=== PATIENT | female | born 1950 | race Caucasian/White ===

== ENCOUNTER 2019-06-01 14:07 | Emergency (ER) | payer MEDICARE ==
[~2019-06-01 14:07] MED LIST: Iopamidol 370 76% 125 ML VIAL FS ONE
[2019-06-01 15:07] LABS: Bilirubin Negative (Negative); Blood, Urine Trace (Negative); Glucose, Urine (Dipstick) 100 mg/dL (Negative); Leukocyte Trace (Negative); Nitrite Negative (Negative); Protein, Urine (Dipstick) Negative (Neg-Trace); Urobilinogen 0.2 mg/dL (Less than 2)
[2019-06-01 15:09] LABS: #Basophils 0.1 thou/uL (0.0-0.2); #Eosinphils 0.2 thou/uL (0.0-0.7); #Lymphocytes 2.2 thou/uL (1.20-3.40); #Monocytes 0.4 thou/uL (0.11-0.59); %Basophils 1.3 % (0.0-1.0); %Eosinophils 2.8 % (0.0-10.0); %Lymphocytes 37.4 % (21.0-51.0); %Monocytes 7.4 % (0.0-10.0); Hemoglobin 9.9 g/dL (12.0-16.0); Mean Corpuscular HGB CONC 30.5 g/dL (32.0-36.0); Mean Corpuscular Hemoglobin 26.9 pg (27.0-31.0); Mean Corpuscular Volume 88.3 fL (78.0-98.0); Platelet Count 217 thou/uL (130-400); RBC Distribution Width 13.2 % (11.5-14.5); Red Blood Cell (RBC) Count 3.69 mill/uL (4.20-5.40); White Blood Cell (WBC) Count 5.8 thou/uL (4.8-10.8)
[2019-06-01 15:12] LABS: Clarity Hazy (Clear)
[2019-06-01 15:13] LABS: Bacteria/HPF 3+ HPF (None Seen); RBC/HPF 0-3 HPF (0-3); Squamous Epithelial 0-3 HPF (0-3); WBC/HPF 0-3 HPF (0-3)
--- NOTE | 2019-06-01 15:21 | RAD ---
SINGLE VIEW OF THE CHEST: COMPARISON: 08/20/2009. HISTORY: Chest pain. FINDINGS: Single view of the chest shows a normal sized cardiomediastinal silhouette. There is no evidence of c onsolidation, mass, or pleural effusion. The bones are unremarkable. IMPRESSION: No evidence of acute cardiopulmonary disease. POS: EAA
[2019-06-01 15:25] LABS: ALT (SGPT) 13 U/L (8-55); AST (SGOT) 17 U/L (5-34); Albumin 3.8 g/dL (3.4-4.8); Alkaline Phosphatase 122 U/L (40-110); Anion Gap 14 mmol/L (10-20); BUN (Urea Nitrogen) 16 mg/dL (9.8-20.1); Bilirubin, Total 0.3 mg/dL (0.2-1.2); Calc. Creatinine Clearance 0 mL/min (70-130); Calcium 8.7 mg/dL (7.8-10.44); Carbon Dioxide 24 mmol/L (23-31); Chloride 109 mmol/L (98-107); Estimated GFR-MDRD 80; Globulin 3.2 g/dL (2.4-3.5); Glucose 134 mg/dL (83-110); Magnesium 1.8 mg/dL (1.6-2.6); Potassium 3.7 mmol/L (3.5-5.1); Sodium 143 mmol/L (136-145)
[2019-06-01] MEDS ORDERED: Aspirin Chewable 81 MG TAB ONE (16:41)
--- NOTE | 2019-06-01 18:56 | CT ---
CT ANGIOGRAM THORAX WITH CONTRAST: (CTA pulmonary angiogram) DATE: 06/01/2019 HISTORY: 69-year-old female with history of recent travel presents with dyspnea and chest pain. TECHNIQUE: IV injection of iodinated contrast. Scan acquisition timing attempted to coincide with iodinated contrast bolus reaching maximal density in pulmonary arteries. 3-D MIP reconstructions. FINDINGS: No thoracic aortic aneurysm or dissection. No thrombus in the pulmonic trunk, left and right main pulmonary arteries, or their first order branc hes. There is severe breathing motion artifact severely degrading the images of the lower lobes, such that the branches of the pulmonary arteries distal to the first order branches, cannot be evaluated. No focal consolidation is visualized. No pleural effusion or pneumothorax. No mediastinal or hilar lymph adenopathy. Trachea and bilateral mainstem bronchi are patent and clear. IMPRESSION: 1. Suboptimal study. The patient did not suspend respirations during the scan. 2. No central pulmonary thromboembolism. Cannot evaluate for pulmonary thromboembolism beyond the fir st order branches of the bilateral main pulmonary arteries. 3. No gross consolidation.
== END 2019-06-01 20:08 | disposition short-term general hospital (02) ==
LOC: EDBD 14:07 → MADERS 14:07
DX: I45.10 Unspecified right bundle-branch block (principal); I49.3 Ventricular premature depolarization; I10 Essential (primary) hypertension; R07.89 Other chest pain; D64.9 Anemia, unspecified; E87.70 Fluid overload, unspecified; E11.9 Type 2 diabetes mellitus without complications; E03.9 Hypothyroidism, unspecified
CPT/HCPCS: 36415; 71045; 71275; 80053; 81003; 81015; 83735; 83880; 84443; 84484; 85025; 93005; Q9967

== ENCOUNTER 2019-08-19 08:29 | Outpatient (CLI) | payer MEDICARE ==
[2019-08-19] MEDS ORDERED: Iopamidol 370 76% 100 ML VIAL ONE (09:00)
--- NOTE | 2019-08-19 09:41 | CT ---
CT Abdomen Pelvis W Con History: Bilateral lower quadrant pain Comparison: None. Findings: Mild atelectasis within the lingula. No pericardial effusion. Prior cholecystectomy. Liver, spleen, adrenal glands are unremarkable. Diffuse moderate fatty atrophy of the pancreas. No hydroureteronephrosis or nephroureterolithiasis. No secondary evidence of a recently passed stone. Normal symmetric bilateral renal enhancement. Extensive atherosclerotic plaque of the ostia of the celiac trunk and superior mesenteric arteries. Advanced changes space disease at L5/S1. Moderate bilateral neural foraminal narrowing at L4-5 and mo derate to severe at L5-S1. There are no dilated loops of large or small bowel. Although the appendix is not definitively visuali zed there is no secondary evidence of acute appendicitis. Small fat-containing umbilical hernia. There is a hypodensity along the right adnexa measuring 3.2 cm. Impression: 1. No acute inflammatory process in the abdomen or pelvis. 2. 3.2 cm hypodensity along the right adnexa for which nonemergent pelvic ultrasound is recommended.
== END 2019-08-19 08:30 | disposition home or self-care (01) ==
LOC: MADCT 08:29
PROVIDERS: ATTEND Nurse Practitioner Family
DX: R10.31 Right lower quadrant pain (principal); R93.89 Abnormal findings on diagnostic imaging of other specified body structures
CPT/HCPCS: 36415; 74177; 82565; Q9967

== ENCOUNTER 2019-11-02 09:04 | Outpatient (CLI) | payer MEDICARE ==
--- NOTE | 2019-11-02 11:55 | ULT ---
PELVIC ULTRASOUND INCLUDING TRANSABDOMINAL AND TRANSVAGINAL EXAM: HISTORY: Pelvic pain for several months. COMPARISON: Abdomen CT, 08/19/2019. FINDINGS: There is a slightly lobulated-appearing cyst or cystic mass in the right adnexal region measuring shelia roximately 2.4 x 2.5 x 3 cm in size which appears to correspond to the previously noted right-sided p elvic/adnexal cyst on the prior CT. No abscess or abnormal fluid collection. Uterus and ovaries hav e been removed previously and are not demonstrated. IMPRESSION: Uterus and ovaries are nonvisualized, evidence for prior removal. Somewhat poorly defined right adne xal cyst or cystic mass up to 3 cm in maximum size which appears to correspond to the abnormality mila cribed on the prior CT scan of 08/19/2019. Etiology is uncertain, this could represent small residual ovarian or other adnexal cyst, but it appears to be overall stable from the prior CT. POS: RRE
== END 2019-11-02 09:05 | disposition home or self-care (01) ==
LOC: MADRAD 09:04
PROVIDERS: ATTEND Nurse Practitioner Family
DX: R10.2 Pelvic and perineal pain (principal); N83.8 Other noninflammatory disorders of ovary, fallopian tube and broad ligament; R93.89 Abnormal findings on diagnostic imaging of other specified body structures
CPT/HCPCS: 76856

== ENCOUNTER 2022-02-10 10:49 | Emergency (ER) | payer MEDICARE ==
[2022-02-10 11:35] LABS: #Basophils 0.1 thou/uL (0.0-0.2); #Lymphocytes 0.8 thou/uL (1.20-3.40); #Monocytes 0.3 thou/uL (0.11-0.59); #Neutrophils 7.1 thou/uL (1.40-6.50); %Basophils 0.6 % (0.0-1.0); %Eosinophils 0.1 % (0.0-10.0); %Lymphocytes 9.5 % (21.0-51.0); %Monocytes 3.6 % (0.0-10.0); %Neutrophils 86.2 % (42.0-75.0); Hemoglobin 15.1 g/dL (12.0-16.0); Mean Corpuscular HGB CONC 32.1 g/dL (32.0-36.0); Mean Corpuscular Hemoglobin 28.6 pg (27.0-31.0); Platelet Count 215 10x3/uL (130-400); Red Blood Cell (RBC) Count 5.28 mill/uL (4.20-5.40); White Blood Cell (WBC) Count 8.2 10x3/uL (4.8-10.8)
[2022-02-10 11:44] LABS: Prothrombin Time 13.1 sec (12.0-14.7)
[2022-02-10 11:53] LABS: ALT (SGPT) 18 U/L (8-55); AST (SGOT) 22 U/L (5-34); Albumin 4.1 g/dL (3.4-4.8); Alkaline Phosphatase 111 U/L (40-110); Anion Gap 13 mmol/L (10-20); BUN (Urea Nitrogen) 16 mg/dL (9.8-20.1); Bilirubin, Total 0.2 mg/dL (0.2-1.2); Calc. Creatinine Clearance 0 mL/min (70-130); Calcium 9.9 mg/dL (7.8-10.44); Carbon Dioxide 25 mmol/L (23-31); Chloride 108 mmol/L (98-107); Estimated GFR 87; Globulin 3.8 g/dL (2.4-3.5); Glucose 110 mg/dL (83-110); Potassium 3.4 mmol/L (3.5-5.1); Protein, Total 7.9 g/dL (5.8-8.1); Sodium 143 mmol/L (136-145)
[2022-02-10 14:47] LABS: Bilirubin Negative (Negative); Blood, Urine Trace (Negative); Glucose, Urine (Dipstick) >=1000 mg/dL (Negative); Ketone, Urine Negative (Negative); Leukocyte Negative (Negative); Nitrite Negative (Negative); Protein, Urine (Dipstick) 100 mg/dL (Neg-Trace); Specific Gravity, Urine 1.025 (1.005-1.030); Urobilinogen 0.2 mg/dL (Less than 2)
[2022-02-10 14:59] LABS: Clarity Cloudy (Clear); RBC/HPF 0-3 HPF (0-3)
[2022-02-10 15:00] LABS: Bacteria/HPF 4+ HPF (None Seen); Squamous Epithelial 0-3 HPF (0-3)
[2022-02-10] MEDS ORDERED: Morphine 4 MG/ML VIAL ONE (15:56)
== END 2022-02-10 17:21 | disposition home or self-care (01) ==
LOC: MADERS 10:49
DX: E11.649 Type 2 diabetes mellitus with hypoglycemia without coma (principal); E03.9 Hypothyroidism, unspecified; I10 Essential (primary) hypertension
CPT/HCPCS: 36416; 80053; 81003; 81015; 85025; 85610; 96374; 36415-59; J2270